=== PATIENT | female | born 1985 | race Asian ===

== ENCOUNTER → 2019-11-20 09:45 | Outpatient (CLI) | payer OTHER, SELFPAY ==
[2019-11-22 05:36] LABS: COVID19 Sendout Not Detected (Not Detected)
== END ==
PROVIDERS: Visit Provider Physician Assistant
DX: Z11.59 Encounter for screening for other viral diseases (principal)
CPT/HCPCS: 87635

== ENCOUNTER → 2022-03-06 15:39 | Outpatient (CLI) | payer OTHER, SELFPAY ==
[2022-03-06 16:40] LABS: Appearance Urine UA CLEAR; Bilirubin Urine UA NEGATIVE (NEGATIVE); Color Urine UA YELLOW; Glucose Urine UA NEGATIVE (Negative); Ketones Urine UA NEGATIVE (NEGATIVE); Leukocyte Esterase Urine UA TRACE (NEGATIVE); Nitrite Urine UA NEGATIVE (Negative); Occult Blood Urine UA NEGATIVE (Negative); Protein Urine UA NEGATIVE (Negative); Urobilinogen Urine UA 0.2 E.U./dL (0.2)
[2022-03-06 16:44] LABS: pH Urine UA 6.5 (4.5-8.0)
[2022-03-06 16:44] LABS: Add Manual Diff / Slide Review NO; Basophils Absolute Auto 0 /uL (0-100); Basophils Percent Auto 0.4 % (0-2); Eosinophils Absolute Auto 300 /uL (0-450); Hematocrit 37.7 % (36-46); Hemoglobin 13.3 g/dL (12.0-16.0); Lymphocytes Absolute Auto 1500 /uL (1100-4500); Lymphocytes Percent Auto 19.8 % (25-40); Mean Corpuscular HGB Conc 35.2 % (30-36); Mean Corpuscular Hemoglobin 31.6 PG (26-34); Mean Corpuscular Volume 89.8 fL (80-100); Monocytes Absolute Auto 600 /uL (0-900); Monocytes Percent Auto 8.1 % (3-14); Neutrophils Absolute Auto 5000 /uL (1500-7000); Neutrophils Percent Auto 67.7 % (50-75); Platelet Count 204 X10^3/uL (150-400); Red Blood Cell Count 4.21 X10^6/uL (4.0-5.2); Red Cell Distribution Width 12.8 % (11.6-14.8); White Blood Cell Count 7.3 X10^3/uL (4.5-11.0)
[2022-03-06 16:55] LABS: Bacteria Urine None Seen; RBC Urine None Seen (0-5/HPF); Squamous Epithelial Cell Urine 5-10 /HPF (0-5/HPF); WBC Urine 0-1/HPF (0-5/HPF)
[2022-03-06 17:51] LABS: Hepatitis B Surface Antigen NEGATIVE s/c (NEGATIVE)
[2022-03-06 18:38] LABS: HIV 1 & 2 Ab/Ag 4th Gen Combo NEGATIVE (NEGATIVE); Hep C Virus Ab w/Reflex Quant NEGATIVE s/c (NEGATIVE)
[2022-03-07 06:06] LABS: Varicella IgG Antibody 556 index (Immune >165)
[2022-03-07 07:47] LABS: RPR Screen Non Reactive (Non Reactive)
== END ==
PROVIDERS: Referring Provider Specialist/Technologist Athletic Trainer; Visit Provider Obstetrics & Gynecology
DX: O09.521 Supervision of elderly multigravida, first trimester (principal)
CPT/HCPCS: 36415; 80055; 81003; 81015; 86787; 86803; 86850; 86900; 86901; 87086; 87389

== ENCOUNTER → 2022-05-02 10:28 | Outpatient (CLI) | payer OTHER, SELFPAY ==
[2022-05-06 13:47] LABS: AFP Value 37.6 ng/mL (.); Gest Age on Col Date 18.6 weeks (.); Insulin Dep Diabetes No (.); OSBR Risk 1IN 10000 (.); Results Report (.); Test Results *Screen Negative* (.)
== END ==
PROVIDERS: Referring Provider Obstetrics & Gynecology; Visit Provider Obstetrics & Gynecology
DX: Z34.82 Encounter for supervision of other normal pregnancy, second trimester (principal); Z3A.18 18 weeks gestation of pregnancy
CPT/HCPCS: 36415; 82105

== ENCOUNTER → 2022-05-30 08:44 | Outpatient (CLI) | payer OTHER, SELFPAY ==
[2022-05-30 15:20] LABS: Urine N gonorrhoeae NOT DETECTED
[2022-05-30 15:42] LABS: Urine Chlamydia NOT DETECTED
== END ==
PROVIDERS: Visit Provider Obstetrics & Gynecology
DX: Z34.82 Encounter for supervision of other normal pregnancy, second trimester (principal); Z3A.22 22 weeks gestation of pregnancy
CPT/HCPCS: 87491; 87591

== ENCOUNTER → 2022-06-26 14:36 | Outpatient (CLI) | payer OTHER, SELFPAY ==
[2022-06-26 16:09] LABS: Hematocrit 35.3 % (36-46); Hemoglobin 12.2 g/dL (12.0-16.0)
[2022-06-26 16:54] LABS: GTT (PREG) 1 Hour PP 50gm Dose 200 mg/dL (76-139)
== END ==
PROVIDERS: Referring Provider Obstetrics & Gynecology; Visit Provider Obstetrics & Gynecology
DX: Z34.82 Encounter for supervision of other normal pregnancy, second trimester (principal); Z3A.22 22 weeks gestation of pregnancy
CPT/HCPCS: 36415; 82950; 85014; 85018

== ENCOUNTER → 2022-08-02 09:53 | Outpatient (CLI) | payer OTHER, SELFPAY ==
[2022-08-02 11:01] LABS: Glucose Fasting Gestational 86 mg/dL (76-95)
[2022-08-02 12:19] LABS: Glucose 1 Hour Gest 196 mg/dL (76-180)
[2022-08-02 13:24] LABS: Glucose Tol Interp,Gestational INTERPRETATION
[2022-08-02 13:43] LABS: Glucose 2 Hour Gest 147 mg/dL (76-155)
[2022-08-02 14:04] LABS: Glucose 3 Hour Gest 114 mg/dL (76-140)
== END ==
PROVIDERS: Referring Provider Physician Assistant Medical; Visit Provider Physician Assistant Medical
DX: O99.810 Abnormal glucose complicating pregnancy (principal)
CPT/HCPCS: 36415; 82951; 82952

== ENCOUNTER → 2022-09-03 17:03 | Outpatient (CLI) | payer OTHER, SELFPAY ==
[2022-09-04 13:19] LABS: Strep Grp B PCR NEG for Grp B Strep
== END ==
PROVIDERS: Visit Provider Obstetrics & Gynecology
DX: Z34.03 Encounter for supervision of normal first pregnancy, third trimester (principal); Z3A.36 36 weeks gestation of pregnancy
CPT/HCPCS: 87653

== ENCOUNTER 2022-09-24 06:54 | Inpatient (IN) | payer OTHER, SELFPAY ==
--- NOTE | 2022-09-24 07:57 | PM.OBHP.IH.1 ---
OB HPI Date/Time Date of admission: 09/24/22 Date Patient Seen: 09/24/22 Time Patient Seen: 07:58 History of Present Condition Chief complaint: induction RAMIRO Calculator Estimated Delivery Date Method Current WG Current Estimate 09/30/22 Ultrasound #1 39w 1d Other Estimates 10/09/22 LMP (Uncertain) 37w 6d Estimated Gestational Age (weeks): 39+1 : 3 Para: 2 Narrative: Patient here for induction of labor due to history of precipitous delivery and advanced maternal age care: good care, initiated at week # (10), number of visits (12) and pounds weight gain (20) Dating criteria OB: based on 1st trimester US only Ultrasounds: normal 1st trimester US and normal mid trimester US Obstetrical complications: none and other (Abnormal 1 hour glucose, only 1 abnormal value in the 3 hour glucose) Medical complications OB: none Indications Indication for induction OB: history of rapid labor and other (Advanced maternal age) Preadmission Labs Last OB Lab Results: Blood Type O Positive 03/06/22 15:58 Antibody Screen Negative 03/06/22 15:58 Hematocrit 35.3 % (36-46) L 06/26/22 16:02 Hemoglobin 12.2 g/dL (12.0-16.0) 06/26/22 16:02 Hepatitis B Surface Antigen Negative s/c (NEGATIVE) 03/06/22 15:58 Hepatitis C Antibody Negative s/c (NEGATIVE) 03/06/22 15:58 Rubella Antibody 167.0 IU/mL (>15) 03/06/22 15:58 Varicella-Zoster IgG Antibody 556 index (Immune >165) 03/06/22 15:58 Glucose 1 Hour 200 mg/dL (76-139) H 06/26/22 16:02 Group B Streptococcus (PCR) Neg for grp b strep 09/03/22 17:03 -: Chlamydia screen: negative, Gonorrhea screen: negative and Urine: negative -: PAP smear: Normal Genetic Screens: Cell-free DNA: Normal (normal female) and Alpha-fetoprotein: Normal External Labs -: Urine: negative Prior (ies) Past Pregnancies Del. Date GA/Weeks Labor Lgth Wt Sex Route Outcome Anesthesia Place Delv Breastfeed Preg Comp Name 07/10/07 41 12 Female vaginal live - full term [place] 1 week M[place] 10/14/08 39 1 Female vaginal live - full term [facility] 4-5 months none Nancy Melendez Delivery Date: 07/10/07 Last Updated by: Nikkie Cee RN neonatal internal bleeding Evaluation Evaluation Baseline heart rate: 140 Variability: Moderate (11-25) monitor accelerations: Present Monitor Decelerations: Absent Dilation (cm): 3 Effacement (%): 80 Dilation: 3-4 cm Effacement: >/=80% station: -1 Position of cervix: posterior Consistency: soft Alanis score: 9 COUNT INCLUDES THE [facility] Medical History Boil of lower extremity Seasonal allergies Social History marital status: unmarried,living together number of children: 2 (both currently living in [facility]) household members: significant other and family (s/o's parents) lives independently: Yes housing: house pets and animals: Yes (2 dogs) education level: high school occupational status: employed current occupational exposures/hazards: No (heavy lifting) special johnny needs: No travel history: over 6 months ago seatbelt use: always water heater temp set < 120 deg: Yes working smoke detector in home: Yes fire extinguisher in home: Yes carbon monox detector in home: Yes firearms in home: No do you feel safe at home: Yes Smoking Status: Former smoker (Quit when she found out she was ) Tobacco: How many years used: 15 (on-and-off, quits during and for nursing) second hand exposure: Yes ([id number] smokes) alcohol intake: former (occasionally when not ) substance use type: does not use during the past year weight has: decreased > 10 lbs (intentional) well-balanced diet: daily or most days daily servings fruits/ve-4 caffeine: Yes (Aware of 200mg limit) Type(s) of exercise: walking and other (heavy lifting at work) frequency: 3-4 times per week Meds Home Medications and Allergies Home Medications Medication Instructions Recorded Confirmed Type cetirizine 10 mg capsule (Zyrtec) 10 mg PO DAILY PRN 02/12/22 09/23/22 History prenat.vits,zully,bgt-sbzj-lslvu 1 tab PO DAILY 02/12/22 09/23/22 History lancets 33 gauge (BD Ultra Fine #100 ea 06/28/22 09/23/22 Rx Lancets) omeprazole 40 mg capsule,delayed 40 mg PO DAILY #30 caps 08/27/22 09/23/22 Rx release Allergies Allergy/AdvReac Type Severity Reaction Status Date / Time banana Allergy Severe Wheezing Verified 09/23/22 15:29 OB Exam Narrative Exam Narrative: Generally: Patient is sitting up in bed, no acute distress Lungs: Clear to auscultation bilaterally Cardiovascular: Regular rate and rhythm Fundal height: 38 cm Estimated weight: 7-1/2 lb Extremities: No edema, 1+ DTRs Assessment and Plan Assessment and Plan Assessment and Plan narrative: Assessment: 36-year-old 3 para 2 at 39-,1/7 weeks gestation for induction of labor due to history of precipitous delivery, and advanced maternal age Favorable cervix Group B strep negative Plan: Pitocin per protocol Artificial rupture of membranes when able Epidural as necessary Expected management to spontaneous vaginal delivery Time Spent with Patient Total time spent with greater than 50% in coordination of care (as documented) at patient's floor/unit and/or counseling patient:: 15-24 minutes
[2022-09-24 08:07] LABS: Add Manual Diff / Slide Review NO; Basophils Absolute Auto 100 /uL (0-100); Basophils Percent Auto 0.7 % (0-2); Eosinophils Absolute Auto 200 /uL (0-450); Eosinophils Percent Auto 1.7 % (2-4); Hemoglobin 12.1 g/dL (12.0-16.0); Lymphocytes Absolute Auto 1400 /uL (1100-4500); Lymphocytes Percent Auto 15.1 % (25-40); Mean Corpuscular HGB Conc 33.7 % (30-36); Mean Corpuscular Hemoglobin 29.2 PG (26-34); Mean Corpuscular Volume 86.8 fL (80-100); Monocytes Absolute Auto 500 /uL (0-900); Monocytes Percent Auto 5.8 % (3-14); Neutrophils Absolute Auto 6900 /uL (1500-7000); Neutrophils Percent Auto 76.7 % (50-75); Platelet Count 228 X10^3/uL (150-400); Red Blood Cell Count 4.15 X10^6/uL (4.0-5.2); Red Cell Distribution Width 14.2 % (11.6-14.8)
--- NOTE | 2022-09-24 08:18 | PM.OBTRLD ---
Visit Information Visit Information Reason for Evaluation: Yes non-stress test [facility] Medical History Boil of lower extremity Seasonal allergies Social History marital status: unmarried,living together number of children: 2 (both currently living in [facility]) household members: significant other and family (s/o's parents) lives independently: Yes housing: house pets and animals: Yes (2 dogs) education level: high school occupational status: employed current occupational exposures/hazards: No (heavy lifting) special johnny needs: No travel history: over 6 months ago seatbelt use: always water heater temp set < 120 deg: Yes working smoke detector in home: Yes fire extinguisher in home: Yes carbon monox detector in home: Yes firearms in home: No do you feel safe at home: Yes Smoking Status: Former smoker (Quit when she found out she was ) Tobacco: How many years used: 15 (on-and-off, quits during and for nursing) second hand exposure: Yes ([id number] smokes) alcohol intake: former (occasionally when not ) substance use type: does not use during the past year weight has: decreased > 10 lbs (intentional) well-balanced diet: daily or most days daily servings fruits/ve-4 caffeine: Yes (Aware of 200mg limit) Type(s) of exercise: walking and other (heavy lifting at work) frequency: 3-4 times per week Objective Labs 09/24/22 08:50 Labs: Laboratory Results - last 24 hr 09/24/22 08:50 WBC 9.0 RBC 4.15 Hgb 12.1 Hct 36.0 MCV 86.8 MCH 29.2 MCHC 33.7 RDW 14.2 Plt Count 228 Neut % (Auto) 76.7 H Lymph % (Auto) 15.1 L Mitchell % (Auto) 5.8 Eos % (Auto) 1.7 L Baso % (Auto) 0.7 Neut # (Auto) 6900 Lymph # (Auto) 1400 Mitchell # (Auto) 500 Eos # (Auto) 200 Baso # (Auto) 100
[2022-09-24 09:50] VITALS: BP 120/80
--- NOTE | 2022-09-24 11:07 | PM.OBPNLAB ---
Date/Time Date Patient Seen: 09/24/22 Time Patient Seen: 11:08 Pain Control Pain control: tolerating well Pelvic Exam Dilation (cm): 5 Effacement (%): 80 station: 0 Amniotic membrane status: Intact Contractions Contractions on admission: none Monitor mode: External Pitocin rate (mU/min): 6 Contraction frequency (min): 3 Contraction duration (min): 1 Contraction pattern: Regular Contraction intensity: Mild Status status: Category l Heart Rate Baseline: 125 Monitor Accelerations: Present Monitor Decelerations: Absent Monitor Variability: Moderate Assessment and Plan Assessment: active labor and induction ongoing Comments: AROM with copious clear amniotic fluid Expectant management to Epidural prn
[2022-09-24] MEDS: ACETAMINOPHEN 325 MG TABLET 650 MG PO (15:55)
--- NOTE | 2022-09-24 17:26 | PM.OBPRVD ---
Events: Other (AMA, elevated 1 hr glucose, one abnormal value on 3 hr GTT) Labor & Delivery Delivery date: 09/24/22 Cervical ripening method: none Induction method: per pitocin protocol Delivery augmentation: rupture of membranes Delivery monitor: external FHT Route of delivery: Episiotomy description: None L&D Laceration Description: None Quantitative Blood Loss: 100 Anesthesia Type: None Complications: None Narrative: Patient complete and pushed for 13 minutes. At 1:58 p.m., a live female infant delivered spontaneously in the JASPREET presentation, over an intact perineum. The remainder of the body delivered without difficulty and was placed on mom's abdomen. The cord was double clamped and cut after 1 minute. Cord bloods were obtained. Pitocin was given in the IV fluids. The placenta delivered intact with a three-vessel cord at 2:06 p.m.. The fundus was massaged to firm. No lacerations noted. Apgars 9 at 1 minute and 9 at 5 minutes. Weight 7 lb 11.5 oz. . No analgesia. [place] Baby 1: Infant gender: Female Presentation: vertex Position: Left Occiput Anterior Placenta delivery description: Spontaneous Cord Vessel Description: 3 Vessels and Clamped/Cut (after one minute) score (1 min): 9 score (5 min): 9 weight: 7 lb 11.5 oz Plan for aftercare: Routine care
[2022-09-25] MEDS: ACETAMINOPHEN 325 MG TABLET 650 MG PO ×2 (04:51→11:34)
[2022-09-25 09:30] LABS: Hematocrit 30.6 % (36-46); Hemoglobin 10.3 g/dL (12.0-16.0)
[2022-09-25] MEDS: IBUPROFEN 600 MG TABLET PO (11:34)
[2022-09-25] MEDS: DOCUSATE 100 MG CAPSULE PO (11:34)
[2022-09-25] MEDS: PRENATAL VIT,CALC/IRON/FOLIC 1 TABLET 1 TAB PO (11:34)
[2022-09-25 12:27] VITALS: BP 113/77; PULSE 87; RESP 16; TEMP 36.3
== END 2022-09-25 15:54 | disposition home or self-care (01) | DRG 807 ==
PROVIDERS: Admitting Provider Obstetrics & Gynecology; Referring Provider Obstetrics & Gynecology; Visit Provider Obstetrics & Gynecology
DX: O80 Encounter for full-term uncomplicated delivery (principal); Z37.0 Single live birth; Z3A.39 39 weeks gestation of pregnancy
CPT/HCPCS: 36415; 59050; 59400; 59409; 85014; 85018; 85025; 86850; 86900; 86901; G0379